=== PATIENT | male | born 1995 | race Caucasian/White ===

== ENCOUNTER 2020-07-24 10:24 | Emergency (ER) | payer OTHER ==
[2020-07-24 10:30] VITALS: RESP 18
--- NOTE | 2020-07-24 11:25 | ED ---
URI HPI - General Chief Complaint: Upper Respiratory Infection Stated Complaint: Sore throat,SOB Time Seen by Provider: 07/24/20 10:33 Source: patient, RN notes reviewed Mode of arrival: ambulatory Limitations: no limitations - History of Present Illness Initial Comments: 25-year-old male presents emergency Department with chief complaint of cough congestion runny nose. Patient states symptoms started on Sunday into . Patient denies any fevers or chills. Patient denies any shortness of breath no chest pain no abdominal pain he has had some slight nausea and have an episode of vomiting. No other complaints. - Related Data Home Medications Medication Instructions Recorded Confirmed No Known Home Medications 07/24/20 07/24/20 Allergies Allergy/AdvReac Type Severity Reaction Status Date / Time methicillin [Methicillin] Allergy Unknown Verified 07/24/20 11:52 Childhood Review of Systems ROS Statement: Those systems with pertinent positive or pertinent negative responses have been documented in the HPI. ROS Other: All systems not noted in ROS Statement are negative. Past Medical History Past Medical History: No Reported History History of Any Multi-Drug Resistant Organisms: None Reported Past Surgical History: No Surgical Hx Reported Past Psychological History: No Psychological Hx Reported Smoking Status: Vaper Past Alcohol Use History: Occasional Past Drug Use History: Marijuana General Exam Limitations: no limitations General appearance: alert, in no apparent distress Head exam: Present: atraumatic, normocephalic, normal inspection Eye exam: Present: normal appearance, PERRL, EOMI. Absent: scleral icterus, conjunctival injection, periorbital swelling ENT exam: Present: normal exam, normal oropharynx, mucous membranes moist Neck exam: Present: normal inspection, full ROM. Absent: tenderness, meningismus, lymphadenopathy Respiratory exam: Present: normal lung sounds bilaterally. Absent: respiratory distress, wheezes, rales, rhonchi, stridor Cardiovascular Exam: Present: normal rhythm, tachycardia, normal heart sounds. Absent: systolic murmur, diastolic murmur, rubs, gallop, clicks GI/Abdominal exam: Present: soft, normal bowel sounds. Absent: distended, tenderness, guarding, rebound, rigid Neurological exam: Present: alert, oriented X3 Skin exam: Present: warm, dry, intact, normal color. Absent: rash Course Vital Signs 07/24/20 10:29 Temperature 98.5 F Pulse Rate 121 H Respiratory 18 Rate Blood Pressure 143/96 O2 Sat by Pulse 99 Oximetry Medical Decision Making - Medical Decision Making 25-year-old male presented for upper respiratory symptoms. Cold is negative. Patient most likely has viral URI be discharged in stable condition return parameters discussed. - Lab Data Lab Results 07/24/20 Range/Units 11:06 Coronavirus (PCR) Not Detected (Not Detectd) Disposition Clinical Impression: Acute upper respiratory infection Disposition: HOME SELF-CARE Condition: Stable Instructions (If sedation given, give patient instructions): Upper Respiratory Infection (ED) Additional Instructions: Please return to the Emergency Department if symptoms worsen or any other concerns. Is patient prescribed a controlled substance at d/c from ED?: No Referrals: None,Stated [Primary Care Provider] - 1-2 days Time of Disposition: 12:07
[2020-07-24 12:37] VITALS: BP 128/79; PULSE 83; TEMP 97.6
== END 2020-07-24 12:37 | disposition home or self-care (01) ==
LOC: EC 10:24
DX: J06.9 Acute upper respiratory infection, unspecified (principal); Z20.828 Contact with and (suspected) exposure to other viral communicable diseases; F17.290 Nicotine dependence, other tobacco product, uncomplicated; Z88.0 Allergy status to penicillin
CPT/HCPCS: 87635; 99283

== ENCOUNTER 2020-07-26 18:09 | Emergency (ER) | payer OTHER ==
--- NOTE | 2020-07-26 20:06 | XR ---
EXAMINATION TYPE: XR chest 2V DATE OF EXAM: 07/26/2020 COMPARISON: NONE HISTORY: Cough TECHNIQUE: FINDINGS: Heart and mediastinum are normal. Lungs are clear. Diaphragm is normal. Bony thorax appears normal. IMPRESSION: Multiple chest
[2020-07-26] MEDS ORDERED: SODIUM CHLORIDE 0.9% 2,000 ML IV STA (21:26)
[2020-07-26] MEDS ORDERED: ONDANSETRON 4 MG/2 ML VIAL IVP STA (21:27)
[2020-07-26] MEDS ORDERED: KETOROLAC 15 MG/ML 1 ML VIAL IVP STA (21:29)
--- NOTE | 2020-07-26 21:31 | ED ---
General Adult HPI - General Chief complaint: Nausea/Vomiting/Diarrhea Stated complaint: Revisit-dizzyiness/not feeling well Time Seen by Provider: 07/26/20 21:13 Source: patient, family Mode of arrival: wheelchair Limitations: no limitations - History of Present Illness Initial comments: 25-year-old male without significant past medical history presents to the emergency room for a chief complaint of nausea vomiting. Patient states for about 4-5 days now he has been nauseous. He states today he started vomiting and is not able to keep much down. Patient also has a cough and sore throat. No fevers. Patient was seen here a few days ago, tested negative for Covid. Patient denies any abdominal pain at this time. States sometimes he has some pa in before he throws up but otherwise is not having abdominal pain. Patient is not having diarrhea.all movements are normal, last one was before he came to the ER. Patient has no other complaints at this time including shortness of breath, chest pain, abdominal pain, headache, or visual changes. - Related Data Previous Rx's Medication Instructions Recorded Ondansetron [Zofran ODT] 4 mg PO Q8HR PRN #15 tab 07/26/20 Allergies Allergy/AdvReac Type Severity Reaction Status Date / Time methicillin [Methicillin] Allergy Unknown Verified 07/24/20 11:52 Childhood Review of Systems ROS Statement: Those systems with pertinent positive or pertinent negative responses have been documented in the HPI. ROS Other: All systems not noted in ROS Statement are negative. Past Medical History Past Medical History: No Reported History History of Any Multi-Drug Resistant Organisms: None Reported Past Surgical History: No Surgical Hx Reported Past Psychological History: No Psychological Hx Reported Smoking Status: Vaper Past Alcohol Use History: Occasional Past Drug Use History: Marijuana General Exam Limitations: no limitations General appearance: alert, in no apparent distress Head exam: Present: atraumatic, normocephalic, normal inspection Eye exam: Present: normal appearance, PERRL, EOMI. Absent: scleral icterus, conjunctival injection, periorbital swelling ENT exam: Present: normal exam, normal oropharynx, mucous membranes moist, TM's normal bilaterally, normal external ear exam Neck exam: Present: normal inspection, full ROM. Absent: tenderness, meningismus, lymphadenopathy Respiratory exam: Present: normal lung sounds bilaterally. Absent: respiratory distress, wheezes, rales, rhonchi, stridor Cardiovascular Exam: Present: regular rate, normal rhythm, normal heart sounds. Absent: systolic murmur, diastolic murmur, rubs, gallop, clicks GI/Abdominal exam: Present: soft, normal bowel sounds. Absent: distended, tenderness, guarding, rebound, rigid Neurological exam: Present: alert Course Vital Signs 07/26/20 21:58 Temperature 97.8 F Pulse Rate 66 Respiratory 18 Rate Blood Pressure 121/68 O2 Sat by Pulse 98 Oximetry Medical Decision Making - Medical Decision Making Vitals are stable. CBC CMP unremarkable. Urinalysis is negative for ketones, no evidence of infection. Coronavirus is negative. Chest x-ray is normal. Patient was given fluids as well as Zofran, did have significant improvement in symptoms. He is eating and drinking without issues. No vomiting. At this time he can be discharged home with Zofran. He will return if he has any worsening symptoms. He will otherwise follow up outpatient with primary care. - Lab Data Result diagrams: 07/26/20 21:26 07/26/20 21:26 Lab Results 07/26/20 07/26/20 07/26/20 Range/Units 19:37 21:21 21:26 WBC 9.9 (3.8-10.6) k/uL RBC 5.55 (4.30-5.90) m/uL Hgb 17.2 (13.0-17.5) gm/dL Hct 48.9 (39.0-53.0) % MCV 88.0 (80.0-100.0) fL MCH 31.0 (25.0-35.0) pg MCHC 35.2 (31.0-37.0) g/dL RDW 12.3 (11.5-15.5) % Plt Count 257 (150-450) k/uL MPV 7.9 Neutrophils % 55 % Lymphocytes % 38 % Monocytes % 5 % Eosinophils % 1 % Basophils % 0 % Neutrophils # 5.4 (1.3-7.7) k/uL Lymphocytes # 3.7 (1.0-4.8) k/uL Monocytes # 0.5 (0-1.0) k/uL Eosinophils # 0.1 (0-0.7) k/uL Basophils # 0.0 (0-0.2) k/uL Sodium (137-145) mmol/L Potassium (3.5-5.1) mmol/L Chloride (98-107) mmol/L Carbon Dioxide (22-30) mmol/L Anion Gap mmol/L BUN (9-20) mg/dL Creatinine (0.66-1.25) mg/dL Est GFR (CKD-EPI)AfAm (>60 ml/min/1.73 sqM) Est GFR (CKD-EPI)NonAf (>60 ml/min/1.73 sqM) Glucose (74-99) mg/dL Calcium (8.4-10.2) mg/dL Total Bilirubin (0.2-1.3) mg/dL AST (17-59) U/L ALT (4-49) U/L Alkaline Phosphatase (38-126) U/L Total Protein (6.3-8.2) g/dL Albumin (3.5-5.0) g/dL Lipase (23-300) U/L Urine Color Yellow Urine Appearance Clear (Clear) Urine pH 6.5 (5.0-8.0) Ur Specific [place] >1.050 H (1.001-1.035) Urine Protein 2+ H (Negative) Urine Glucose (UA) Negative (Negative) Urine Ketones Negative (Negative) Urine Blood Negative (Negative) Urine Nitrite Negative (Negative) Urine Bilirubin 1+ H (Negative) Urine Urobilinogen 8.0 (<2.0) mg/dL Ur Leukocyte Esterase Negative (Negative) Urine RBC 1 (0-5) /hpf Urine WBC 5 (0-5) /hpf Hyaline Casts 5 H (0-2) /lpf Urine Mucus Many H (None) /hpf Coronavirus (PCR) Not Detected (Not Detectd) 07/26/20 Range/Units 21:26 WBC (3.8-10.6) k/uL RBC (4.30-5.90) m/uL Hgb (13.0-17.5) gm/dL Hct (39.0-53.0) % MCV (80.0-100.0) fL MCH (25.0-35.0) pg MCHC (31.0-37.0) g/dL RDW (11.5-15.5) % Plt Count (150-450) k/uL MPV Neutrophils % % Lymphocytes % % Monocytes % % Eosinophils % % Basophils % % Neutrophils # (1.3-7.7) k/uL Lymphocytes # (1.0-4.8) k/uL Monocytes # (0-1.0) k/uL Eosinophils # (0-0.7) k/uL Basophils # (0-0.2) k/uL Sodium 138 (137-145) mmol/L Potassium 4.0 (3.5-5.1) mmol/L Chloride 103 (98-107) mmol/L Carbon Dioxide 27 (22-30) mmol/L Anion Gap 8 mmol/L BUN 11 (9-20) mg/dL Creatinine 0.80 (0.66-1.25) mg/dL Est GFR (CKD-EPI)AfAm >90 (>60 ml/min/1.73 sqM) Est GFR (CKD-EPI)NonAf >90 (>60 ml/min/1.73 sqM) Glucose 98 (74-99) mg/dL Calcium 9.4 (8.4-10.2) mg/dL Total Bilirubin 0.8 (0.2-1.3) mg/dL AST 23 (17-59) U/L ALT 26 (4-49) U/L Alkaline Phosphatase 85 (38-126) U/L Total Protein 7.6 (6.3-8.2) g/dL Albumin 4.4 (3.5-5.0) g/dL Lipase 128 (23-300) U/L Urine Color Urine Appearance (Clear) Urine pH (5.0-8.0) Ur Specific [place] (1.001-1.035) Urine Protein (Negative) Urine Glucose (UA) (Negative) Urine Ketones (Negative) Urine Blood (Negative) Urine Nitrite (Negative) Urine Bilirubin (Negative) Urine Urobilinogen (<2.0) mg/dL Ur Leukocyte Esterase (Negative) Urine RBC (0-5) /hpf Urine WBC (0-5) /hpf Hyaline Casts (0-2) /lpf Urine Mucus (None) /hpf Coronavirus (PCR) (Not Detectd) Disposition Clinical Impression: Nausea and vomiting Disposition: HOME SELF-CARE Condition: Good Instructions (If sedation given, give patient instructions): Acute Nausea and Vomiting (ED) Additional Instructions: Please drink plenty of fluids. Stick to a bland diet such as bananas, rice, applesauce, toast. Take Zofran as needed for nausea. Please follow-up with primary care in 1-2 days. Return to the emergency room for any worsening symptoms. Prescriptions: Ondansetron [Zofran ODT] 4 mg PO Q8HR PRN #15 tab PRN Reason: Nausea Is patient prescribed a controlled substance at d/c from ED?: No Referrals: Kingsley Rodas MD [REFERRING] - 1-2 days Time of Disposition: 22:36
[2020-07-26 21:42] LABS: Basophils % (A) 0 %; Eosinophils # (A) 0.1 k/uL (0-0.7); Eosinophils % (A) 1 %; HCT 48.9 % (39.0-53.0); HGB 17.2 gm/dL (13.0-17.5); Lymphocytes # (A) 3.7 k/uL (1.0-4.8); Lymphocytes % (A) 38 %; MCHC 35.2 g/dL (31.0-37.0); Mean Platelet Volume 7.9; Monocytes # (A) 0.5 k/uL (0-1.0); Monocytes % (A) 5 %; Neutrophils # (A) 5.4 k/uL (1.3-7.7); Neutrophils % (A) 55 %; Platelet Count 257 k/uL (150-450); RBC 5.55 m/uL (4.30-5.90); RDW 12.3 % (11.5-15.5); WBC 9.9 k/uL (3.8-10.6)
[2020-07-26 21:45] LABS: Appearance,Urine Clear (Clear); Bilirubin,Urine 1+ (Negative); Blood,Urine Negative (Negative); Color,Urine Yellow; Glucose,Urine (UA) Negative (Negative); Hyaline Casts,Urine 5 /lpf (0-2); Ketones,Urine Negative (Negative); Leukocyte Esterase,Urine Negative (Negative); Mucus,Urine Many /hpf; Nitrite,Urine Negative (Negative); PH, Urine 6.5 (5.0-8.0); Protein,Urine 2+ (Negative); RBC,Urine 1 /hpf (0-5); WBC,Urine 5 /hpf (0-5)
[2020-07-26 21:48] LABS: Specific Gravity,Urine >1.050 (1.001-1.035)
[2020-07-26 21:50] LABS: ALT 26 U/L (4-49); AST 23 U/L (17-59); African American GFR (CKD) >90 (>60 ml/min/1.73 sqM); Albumin 4.4 g/dL (3.5-5.0); Alkaline Phosphatase 85 U/L (38-126); Anion Gap 8 mmol/L; Blood Urea Nitrogen 11 mg/dL (9-20); Calcium 9.4 mg/dL (8.4-10.2); Carbon Dioxide 27 mmol/L (22-30); Chloride 103 mmol/L (98-107); Glucose 98 mg/dL (74-99); Lipase 128 U/L (23-300); Non-African American GFR(CKD) >90 (>60 ml/min/1.73 sqM); Sodium 138 mmol/L (137-145); Total Bilirubin 0.8 mg/dL (0.2-1.3); Total Protein 7.6 g/dL (6.3-8.2)
[2020-07-26 22:01] VITALS: RESP 18
[2020-07-26 23:02] VITALS: BP 125/79; PULSE 80; TEMP 98
== END 2020-07-26 23:02 | disposition home or self-care (01) ==
LOC: EC 18:09
DX: R11.2 Nausea with vomiting, unspecified (principal); R19.7 Diarrhea, unspecified; R05 Cough; F17.290 Nicotine dependence, other tobacco product, uncomplicated; Z20.822 Contact with and (suspected) exposure to COVID-19
CPT/HCPCS: 36415; 80053; 83690; 85025; 81001; 87635; 71046; 99284; 96374; 96375; 96361; J2405; J1885

== ENCOUNTER 2020-08-15 09:19 | Emergency (ER) | payer OTHER ==
[2020-08-15 09:24] VITALS: RESP 18; TEMP 98.4
[2020-08-15] MEDS ORDERED: ONDANSETRON 4 MG/2 ML VIAL IVP STA (09:34)
[2020-08-15] MEDS ORDERED: SODIUM CHLORIDE 0.9% 1,000 ML IV STA (09:34)
--- NOTE | 2020-08-15 09:55 | ED ---
Nausea/Vomiting/Diarrhea HPI - General Chief complaint: Nausea/Vomiting/Diarrhea Stated complaint: Vomiting, Congestion Time Seen by Provider: 08/15/20 09:25 Source: patient Mode of arrival: ambulatory Limitations: no limitations - History of Present Illness Initial comments: Patient is a 25-year-old male presenting to the emergency Department with comp laints of nausea and vomiting for the past month. Patient states that almost every morning he wakes up with some nausea and dry heaving. He states some days it is only episode other days he does have been one episode. He states he has been under a lot of stress lately, he is planning a wedding in the next few months, he has a 4-month-old baby at home, he works midnights, he has not been eating and drinking very much. He states he does not have a family doctor that he sees. He denies any pertinent past medical history. He denies any recent fevers or chills, no chest pain or shortness of breath, no diarrhea. He denies any abdominal pain. He denies taking any medications, no alcohol or drug use. He has no further complaints at this time. Upon arrival to the ER, his vital signs are stable. - Related Data Previous Rx's Medication Instructions Recorded Ondansetron [Zofran ODT] 4 mg PO Q8HR PRN #15 tab 07/26/20 Ondansetron Odt [Zofran Odt] 4 mg PO Q8HR PRN #10 tab 08/15/20 Allergies Allergy/AdvReac Type Severity Reaction Status Date / Time methicillin [Methicillin] Allergy Unknown Verified 08/15/20 09:21 Childhood Review of Systems ROS Statement: Those systems with pertinent positive or pertinent negative responses have been documented in the HPI. ROS Other: All systems not noted in ROS Statement are negative. Past Medical History Past Medical History: No Reported History History of Any Multi-Drug Resistant Organisms: None Reported Past Surgical History: No Surgical Hx Reported Additional Past Surgical History / Comment(s): ear sugery. Past Psychological History: No Psychological Hx Reported Smoking Status: Vaper Past Alcohol Use History: Occasional Past Drug Use History: Marijuana General Exam - General Exam Comments Initial Comments: GENERAL: Patient is well-developed and well-nourished. Patient is nontoxic and in no acute distress. HEAD: Atraumatic, normocephalic. EYES: Pupils equal round and reactive to light, extraocular movements intact, sclera anicteric, conjunctiva are normal. Eyelids were unremarkable. ENT: TMs normal, nares patent, oropharynx clear without exudates. Moist mucous membranes. NECK: Normal range of motion, supple without lymphadenopathy or JVD. LUNGS: Unlabored respirations. Breath sounds clear to auscultation bilaterally and equal. No wheezes rales or rhonchi. HEART: Regular rate and rhythm without murmurs, rubs or gallops. ABDOMEN: Soft, nontender, normoactive bowel sounds. No guarding, no rebound. No masses appreciated. : Deferred MUSCULOSKELETAL: Normal extremities with adequate strength and normal range of motion, no pitting or edema. No clubbing or cyanosis. NEUROLOGICAL: Patient is alert and oriented x 3. Motor and sensory are also intact. Cranial nerves II through XII grossly intact. Symmetrical smile. Normal speech, normal gait. PSYCH: Normal mood, normal affect. SKIN: Warm, Dry, normal turgor, no rashes or lesions noted. Limitations: no limitations Course Vital Signs 08/15/20 09:21 Temperature 98.4 F Pulse Rate 78 Respiratory 18 Rate Blood Pressure 148/91 O2 Sat by Pulse 94 L Oximetry Medical Decision Making - Medical Decision Making Patient is a 25-year-old male here for intermittent nausea and vomiting for the past month. He is under a lot of stress, eating or drinking very much, working midnights. His vital signs are stable. His exam is unremarkable. Labs are normal, patient received a liter bolus and Zofran. He has been resting comfortably. I discussed with patient and I think his symptoms are related to anxiety, not sleeping and distress. He does not have a regular PCP that he sees. I will give him a referral. Also send him home with a few tablets of Zofran to use as needed. Recommended increasing his water intake, eating a normal diet. He is stable for discharge. Return parameters were discussed with the patient and he verbalized understanding. Case discussed with Dr. Brown. - Lab Data Result diagrams: 08/15/20 09:37 08/15/20 09:37 Lab Results 08/15/20 08/15/20 Range/Units 09:37 09:37 WBC 8.2 (3.8-10.6) k/uL RBC 5.44 (4.30-5.90) m/uL Hgb 16.5 (13.0-17.5) gm/dL Hct 47.3 (39.0-53.0) % MCV 87.0 (80.0-100.0) fL MCH 30.3 (25.0-35.0) pg MCHC 34.8 (31.0-37.0) g/dL RDW 12.3 (11.5-15.5) % Plt Count 320 (150-450) k/uL MPV 7.5 Neutrophils % 79 % Lymphocytes % 15 % Monocytes % 4 % Eosinophils % 1 % Basophils % 0 % Neutrophils # 6.5 (1.3-7.7) k/uL Lymphocytes # 1.3 (1.0-4.8) k/uL Monocytes # 0.3 (0-1.0) k/uL Eosinophils # 0.1 (0-0.7) k/uL Basophils # 0.0 (0-0.2) k/uL Sodium 137 (137-145) mmol/L Potassium 4.3 (3.5-5.1) mmol/L Chloride 102 (98-107) mmol/L Carbon Dioxide 26 (22-30) mmol/L Anion Gap 9 mmol/L BUN 11 (9-20) mg/dL Creatinine 0.89 (0.66-1.25) mg/dL Est GFR (CKD-EPI)AfAm >90 (>60 ml/min/1.73 sqM) Est GFR (CKD-EPI)NonAf >90 (>60 ml/min/1.73 sqM) Glucose 109 H (74-99) mg/dL Calcium 10.1 (8.4-10.2) mg/dL Total Bilirubin 1.3 (0.2-1.3) mg/dL AST 24 (17-59) U/L ALT 26 (4-49) U/L Alkaline Phosphatase 87 (38-126) U/L Total Protein 8.3 H (6.3-8.2) g/dL Albumin 4.8 (3.5-5.0) g/dL Disposition Clinical Impression: Dehydration, Anxiety, Nausea & vomiting Disposition: HOME SELF-CARE Condition: Stable Instructions (If sedation given, give patient instructions): Anxiety (ED) Additional Instructions: Please return to the Emergency Department if symptoms worsen or any other concerns. May take Zofran for any additional nausea or vomiting. Please follow up with a PCP regarding your anxiety, stress. Prescriptions: Ondansetron Odt [Zofran Odt] 4 mg PO Q8HR PRN #10 tab PRN Reason: Nausea Is patient prescribed a controlled substance at d/c from ED?: No Referrals: None,Stated [Primary Care Provider] - 1-2 days Kingsley Rodas MD [REFERRING] - 1-2 days Time of Disposition: 10:50
[2020-08-15 10:02] LABS: Basophils % (A) 0 %; Eosinophils # (A) 0.1 k/uL (0-0.7); Eosinophils % (A) 1 %; HCT 47.3 % (39.0-53.0); HGB 16.5 gm/dL (13.0-17.5); Lymphocytes # (A) 1.3 k/uL (1.0-4.8); Lymphocytes % (A) 15 %; MCH 30.3 pg (25.0-35.0); MCHC 34.8 g/dL (31.0-37.0); Mean Platelet Volume 7.5; Monocytes # (A) 0.3 k/uL (0-1.0); Monocytes % (A) 4 %; Neutrophils # (A) 6.5 k/uL (1.3-7.7); Neutrophils % (A) 79 %; Platelet Count 320 k/uL (150-450); RBC 5.44 m/uL (4.30-5.90); RDW 12.3 % (11.5-15.5); WBC 8.2 k/uL (3.8-10.6)
[2020-08-15 10:09] LABS: ALT 26 U/L (4-49); AST 24 U/L (17-59); African American GFR (CKD) >90 (>60 ml/min/1.73 sqM); Albumin 4.8 g/dL (3.5-5.0); Alkaline Phosphatase 87 U/L (38-126); Anion Gap 9 mmol/L; Blood Urea Nitrogen 11 mg/dL (9-20); Calcium 10.1 mg/dL (8.4-10.2); Carbon Dioxide 26 mmol/L (22-30); Chloride 102 mmol/L (98-107); Glucose 109 mg/dL (74-99); Non-African American GFR(CKD) >90 (>60 ml/min/1.73 sqM); Potassium 4.3 mmol/L (3.5-5.1); Sodium 137 mmol/L (137-145); Total Bilirubin 1.3 mg/dL (0.2-1.3); Total Protein 8.3 g/dL (6.3-8.2)
[2020-08-15 11:25] VITALS: BP 120/70; PULSE 80
== END 2020-08-15 11:19 | disposition home or self-care (01) ==
LOC: EC 09:19
DX: F41.9 Anxiety disorder, unspecified (principal); E86.0 Dehydration; R11.2 Nausea with vomiting, unspecified; F12.90 Cannabis use, unspecified, uncomplicated
CPT/HCPCS: 36415; 80053; 85025; 99284; 96374; J2405

== ENCOUNTER 2020-08-19 08:37 | Emergency (ER) | payer OTHER ==
[2020-08-19 08:48] VITALS: RESP 18
[2020-08-19] MEDS ORDERED: SODIUM CHLORIDE 0.9% 1,000 ML IV STA (09:02)
[2020-08-19] MEDS ORDERED: ONDANSETRON 4 MG/2 ML VIAL IVP STA (09:02)
[2020-08-19 09:29] LABS: Basophils % (A) 0 %; Eosinophils # (A) 0.1 k/uL (0-0.7); Eosinophils % (A) 1 %; HCT 45.4 % (39.0-53.0); HGB 15.9 gm/dL (13.0-17.5); Lymphocytes # (A) 1.5 k/uL (1.0-4.8); Lymphocytes % (A) 17 %; MCH 30.6 pg (25.0-35.0); MCHC 34.9 g/dL (31.0-37.0); MCV 87.6 fL (80.0-100.0); Mean Platelet Volume 7.3; Monocytes # (A) 0.4 k/uL (0-1.0); Monocytes % (A) 4 %; Neutrophils % (A) 77 %; Platelet Count 294 k/uL (150-450); RBC 5.19 m/uL (4.30-5.90); RDW 12.3 % (11.5-15.5); WBC 9.1 k/uL (3.8-10.6)
[2020-08-19 09:43] LABS: ALT 18 U/L (4-49); AST 21 U/L (17-59); African American GFR (CKD) >90 (>60 ml/min/1.73 sqM); Albumin 4.7 g/dL (3.5-5.0); Alkaline Phosphatase 78 U/L (38-126); Anion Gap 8 mmol/L; Blood Urea Nitrogen 8 mg/dL (9-20); Calcium 9.9 mg/dL (8.4-10.2); Carbon Dioxide 27 mmol/L (22-30); Chloride 102 mmol/L (98-107); Glucose 106 mg/dL (74-99); Lipase 151 U/L (23-300); Non-African American GFR(CKD) >90 (>60 ml/min/1.73 sqM); Potassium 4.3 mmol/L (3.5-5.1); Sodium 137 mmol/L (137-145); Total Bilirubin 0.9 mg/dL (0.2-1.3); Total Protein 8.1 g/dL (6.3-8.2)
[2020-08-19 09:46] LABS: Appearance,Urine Clear (Clear); Bilirubin,Urine Negative (Negative); Blood,Urine Negative (Negative); Color,Urine Light Yellow; Glucose,Urine (UA) Negative (Negative); Ketones,Urine Negative (Negative); Leukocyte Esterase,Urine Negative (Negative); Nitrite,Urine Negative (Negative); PH, Urine 6.5 (5.0-8.0); Protein,Urine Negative (Negative); Specific Gravity,Urine 1.012 (1.001-1.035); Urobilinogen,Urine <2.0 mg/dL (<2.0)
--- NOTE | 2020-08-19 09:47 | ED ---
Nausea/Vomiting/Diarrhea HPI - General Chief complaint: Nausea/Vomiting/Diarrhea Stated complaint: Revisit - Vomiting/Dizziness Time Seen by Provider: 08/19/20 08:45 Source: patient Mode of arrival: ambulatory Limitations: no limitations - History of Present Illness Initial comments: Patient is a 25-year-old previously healthy male who presents to the emergency department for nausea and vomiting. Reports that it has been going on for the past 1.5 months. He has been tested twice for Covid both of which were negative. He was seen in our emergency department 4 days ago for similar complaint. At that time the patient states he was under significant amount of stress and therefore he thought it was stress-induced. He has been using Zofran at home however continues to have nausea. Denies any provocative factors. Patient has now developed some generalized abdominal pain. Due to the persistence of the symptoms he does return for repeat evaluation. Denies any fevers. No sick contacts. She denies chest pain or shortness of breath. No constipation, black or bloody stools. Does report diarrhea. No changes in his urination to include dysuria, hematuria or difficulty voiding. When questioned the patient does admit to smoking marijuana however does feel as if this improves his symptoms.denies alcohol use. no other alleviating, precipitating or modifying factors - Related Data Previous Rx's Medication Instructions Recorded Metoclopramide [Reglan] 10 mg PO TID PRN #21 tab 08/19/20 Allergies Allergy/AdvReac Type Severity Reaction Status Date / Time methicillin [Methicillin] Allergy Unknown Verified 08/19/20 10:21 Childhood Review of Systems ROS Statement: Those systems with pertinent positive or pertinent negative responses have been documented in the HPI. ROS Other: All systems not noted in ROS Statement are negative. Past Medical History Past Medical History: No Reported History History of Any Multi-Drug Resistant Organisms: None Reported Past Surgical History: No Surgical Hx Reported Additional Past Surgical History / Comment(s): ear sugery. Past Psychological History: No Psychological Hx Reported Smoking Status: Vaper Past Alcohol Use History: Occasional Past Drug Use History: Marijuana General Exam Limitations: no limitations General appearance: alert, in no apparent distress Head exam: Present: atraumatic, normocephalic, normal inspection Eye exam: Present: normal appearance, PERRL, EOMI. Absent: scleral icterus, conjunctival injection, periorbital swelling ENT exam: Present: normal exam, mucous membranes moist Neck exam: Present: normal inspection. Absent: tenderness, meningismus, lymphadenopathy Respiratory exam: Present: normal lung sounds bilaterally. Absent: respiratory distress, wheezes, rales, rhonchi, stridor Cardiovascular Exam: Present: regular rate, normal rhythm, normal heart sounds. Absent: systolic murmur, diastolic murmur, rubs, gallop, clicks GI/Abdominal exam: Present: soft, normal bowel sounds. Absent: distended, tenderness, guarding, rebound, rigid Extremities exam: Present: normal inspection, full ROM, normal capillary refill. Absent: tenderness, pedal edema, joint swelling, calf tenderness Back exam: Present: normal inspection Neurological exam: Present: alert, oriented X3, CN II-XII intact Psychiatric exam: Present: normal affect, normal mood Skin exam: Present: warm, dry, intact, normal color. Absent: rash Course Vital Signs 08/19/20 08/19/20 08:45 11:13 Temperature 99.2 F 98.3 F Pulse Rate 100 70 Respiratory 18 18 Rate Blood Pressure 148/83 112/78 O2 Sat by Pulse 97 100 Oximetry Medical Decision Making - Medical Decision Making Upon arrival patient is placed into room 8. Thorough history and physical exam was performed. IV is established the patient is given a liter bolus normal saline. Also provided with 4 mg of Zofran. Laboratory studies are conducted and reviewed. Toxicology is positive for marijuana. Patient was sent for computed tomography scan and pelvis as he has had continued nausea, abdominal pain and vomiting without previous imaging. CT is reviewed and demonstrates possible small bowel enteritis. Results discussed the patient. Did discuss fol low-up with GI for possible EGD and colonoscopy. He will be given a prescription for Reglan as he states that the Zofran he has at home is not working well. Return to the emergency room for any worsening symptoms. Patient agreed to this the patient was discharged home in stable condition - Lab Data Result diagrams: 08/19/20 09:12 08/19/20 09:12 Lab Results 08/19/20 08/19/20 08/19/20 Range/Units 09:12 09:12 09:12 WBC 9.1 (3.8-10.6) k/uL RBC 5.19 (4.30-5.90) m/uL Hgb 15.9 (13.0-17.5) gm/dL Hct 45.4 (39.0-53.0) % MCV 87.6 (80.0-100.0) fL MCH 30.6 (25.0-35.0) pg MCHC 34.9 (31.0-37.0) g/dL RDW 12.3 (11.5-15.5) % Plt Count 294 (150-450) k/uL MPV 7.3 Neutrophils % 77 % Lymphocytes % 17 % Monocytes % 4 % Eosinophils % 1 % Basophils % 0 % Neutrophils # 7.0 (1.3-7.7) k/uL Lymphocytes # 1.5 (1.0-4.8) k/uL Monocytes # 0.4 (0-1.0) k/uL Eosinophils # 0.1 (0-0.7) k/uL Basophils # 0.0 (0-0.2) k/uL Sodium 137 (137-145) mmol/L Potassium 4.3 (3.5-5.1) mmol/L Chloride 102 (98-107) mmol/L Carbon Dioxide 27 (22-30) mmol/L Anion Gap 8 mmol/L BUN 8 L (9-20) mg/dL Creatinine 0.81 (0.66-1.25) mg/dL Est GFR (CKD-EPI)AfAm >90 (>60 ml/min/1.73 sqM) Est GFR (CKD-EPI)NonAf >90 (>60 ml/min/1.73 sqM) Glucose 106 H (74-99) mg/dL Plasma Lactic Acid Asim (0.7-2.0) mmol/L Calcium 9.9 (8.4-10.2) mg/dL Total Bilirubin 0.9 (0.2-1.3) mg/dL AST 21 (17-59) U/L ALT 18 (4-49) U/L Alkaline Phosphatase 78 (38-126) U/L Total Protein 8.1 (6.3-8.2) g/dL Albumin 4.7 (3.5-5.0) g/dL Lipase 151 (23-300) U/L Urine Color Light Yellow Urine Appearance Clear (Clear) Urine pH 6.5 (5.0-8.0) Ur Specific [place] 1.012 (1.001-1.035) Urine Protein Negative (Negative) Urine Glucose (UA) Negative (Negative) Urine Ketones Negative (Negative) Urine Blood Negative (Negative) Urine Nitrite Negative (Negative) Urine Bilirubin Negative (Negative) Urine Urobilinogen <2.0 (<2.0) mg/dL Ur Leukocyte Esterase Negative (Negative) Urine Opiates Screen (NotDetected) Ur Oxycodone Screen (NotDetected) Urine Methadone Screen (NotDetected) Ur Propoxyphene Screen (NotDetected) Ur Barbiturates Screen (NotDetected) U Tricyclic Antidepress (NotDetected) Ur Phencyclidine Scrn (NotDetected) Ur Amphetamines Screen (NotDetected) U Methamphetamines Scrn (NotDetected) U Benzodiazepines Scrn (NotDetected) Urine Cocaine Screen (NotDetected) U Marijuana (THC) Screen (NotDetected) 08/19/20 08/19/20 Range/Units 09:12 09:12 WBC (3.8-10.6) k/uL RBC (4.30-5.90) m/uL Hgb (13.0-17.5) gm/dL Hct (39.0-53.0) % MCV (80.0-100.0) fL MCH (25.0-35.0) pg MCHC (31.0-37.0) g/dL RDW (11.5-15.5) % Plt Count (150-450) k/uL MPV Neutrophils % % Lymphocytes % % Monocytes % % Eosinophils % % Basophils % % Neutrophils # (1.3-7.7) k/uL Lymphocytes # (1.0-4.8) k/uL Monocytes # (0-1.0) k/uL Eosinophils # (0-0.7) k/uL Basophils # (0-0.2) k/uL Sodium (137-145) mmol/L Potassium (3.5-5.1) mmol/L Chloride (98-107) mmol/L Carbon Dioxide (22-30) mmol/L Anion Gap mmol/L BUN (9-20) mg/dL Creatinine (0.66-1.25) mg/dL Est GFR (CKD-EPI)AfAm (>60 ml/min/1.73 sqM) Est GFR (CKD-EPI)NonAf (>60 ml/min/1.73 sqM) Glucose (74-99) mg/dL Plasma Lactic Acid Asim 1.2 (0.7-2.0) mmol/L Calcium (8.4-10.2) mg/dL Total Bilirubin (0.2-1.3) mg/dL AST (17-59) U/L ALT (4-49) U/L Alkaline Phosphatase (38-126) U/L Total Protein (6.3-8.2) g/dL Albumin (3.5-5.0) g/dL Lipase (23-300) U/L Urine Color Urine Appearance (Clear) Urine pH (5.0-8.0) Ur Specific [place] (1.001-1.035) Urine Protein (Negative) Urine Glucose (UA) (Negative) Urine Ketones (Negative) Urine Blood (Negative) Urine Nitrite (Negative) Urine Bilirubin (Negative) Urine Urobilinogen (<2.0) mg/dL Ur Leukocyte Esterase (Negative) Urine Opiates Screen Not Detected (NotDetected) Ur Oxycodone Screen Not Detected (NotDetected) Urine Methadone Screen Not Detected (NotDetected) Ur Propoxyphene Screen Not Detected (NotDetected) Ur Barbiturates Screen Not Detected (NotDetected) U Tricyclic Antidepress Not Detected (NotDetected) Ur Phencyclidine Scrn Not Detected (NotDetected) Ur Amphetamines Screen Not Detected (NotDetected) U Methamphetamines Scrn Not Detected (NotDetected) U Benzodiazepines Scrn Not Detected (NotDetected) Urine Cocaine Screen Not Detected (NotDetected) U Marijuana (THC) Screen Detected H (NotDetected) Disposition Clinical Impression: Nausea and vomiting Disposition: HOME SELF-CARE Condition: Stable Instructions (If sedation given, give patient instructions): Acute Nausea and Vomiting (ED) Additional Instructions: Please follow up with the GI doctor for further evaluation. You may need an EGD and colonoscopy. Take the Reglan for nausea. Return to the ED for any new or worsening symptoms. Prescriptions: Metoclopramide [Reglan] 10 mg PO TID PRN #21 tab PRN Reason: GERD Is patient prescribed a controlled substance at d/c from ED?: No Referrals: None,Stated [Primary Care Provider] - 1-2 days Yeyo High MD [STAFF PHYSICIAN] - 1-2 days Time of Disposition: 11:05
--- NOTE | 2020-08-19 10:05 | CT ---
EXAMINATION TYPE: CT abdomen pelvis w con DATE OF EXAM: 08/19/2020 COMPARISON: None HISTORY: Right sided pain with nausea and vomiting for 1+ months CT DLP: 1380.3 mGycm CONTRAST: CT scan of the abdomen and pelvis is performed without Oral Contrast and with IV Contrast, patient in jected with 100 mL of Isovue 300. FINDINGS: LUNG BASES-: No visible nodule. No infiltrate. LIVER/GB: No calcified gallstones. No space occupying hepatic lesion. Biliary tree is of normal ca liber. PANCREAS: No inflammation. No distinct mass. SPLEEN: No splenic enlargement. No lesion seen. ADRENALS: No nodule. No thickening. KIDNEYS/BLADDER: No hydronephrosis. No nephrolithiasis. No distinct renal mass. Urinary bladder g rossly unremarkable. BOWEL: Normal appendix. Mild jejunal wall thickening may reflect a small bowel enteritis. Remaining s mall and large bowel are normal caliber. GENITAL ORGANS: No gross abnormality. LYMPH NODES: No greater than 1cm abdominal or pelvic lymph nodes are appreciated. AORTA: No significant abnormality. OSSEOUS STRUCTURES: No significant abnormality is seen. OTHER: No significant additional abnormality is seen. IMPRESSION: 1. Correlate for small bowel enteritis.
[2020-08-19 11:14] VITALS: BP 112/78; PULSE 70; TEMP 98.3
[2020-08-19 12:23] LABS: Amphetamine Screen,Urine Not Detected (NotDetected); Barbiturate Screen,Urine Not Detected (NotDetected); Benzodiazepines Screen,Urine Not Detected (NotDetected); Cocaine Screen,Urine Not Detected (NotDetected); Methadone Screen, Urine Not Detected (NotDetected); Opiate Screen,Urine Not Detected (NotDetected); Oxycodone Screen, Urine Not Detected (NotDetected); Phencyclidine Screen,Urine Not Detected (NotDetected); Tricyclic Antidepressant,Urine Not Detected (NotDetected); Urn Cannabinoid Scrn Detected (NotDetected)
== END 2020-08-19 11:15 | disposition home or self-care (01) ==
LOC: EC 08:37
DX: R11.2 Nausea with vomiting, unspecified (principal); F12.90 Cannabis use, unspecified, uncomplicated
CPT/HCPCS: 36415; 80053; 83605; 83690; 85025; 81003; 80306; 74177; 99284; 96374; J2405; Q9967

== ENCOUNTER 2020-08-31 07:04 | Emergency (ER) | payer OTHER ==
[2020-08-31 07:08] VITALS: RESP 18; TEMP 97.9
--- NOTE | 2020-08-31 07:28 | ED ---
General Adult HPI - General Chief complaint: Abdominal Pain Stated complaint: Abd Pain Time Seen by Provider: 08/31/20 07:10 Source: patient Mode of arrival: ambulatory Limitations: no limitations - History of Present Illness Initial comments: Dictation was produced using [employer] dictation software. please excuse any grammatical, word or spelling errors. This patient was cared for during a federal and state declared state of emergency secondary to Covid 19 Chief Complaint: 25-year-old male presents to the emergency department for ab dominal pain History of Present Illness: 25-year-old male he denies any significant past medical history. He states that he's been having right lower quadrant abdominal pain for 2 months. He was seen here in emergency department approximately 2 weeks ago for the same complaint. Patient states over the last 2 months he's been having pain in the right lower quadrant radiates down into his groin. states that his urine does look dark. No nausea vomiting. No fevers. Denies any history of abdominal surgeries. The ROS documented in this emergency department record has been reviewed and con firmed by me. Those systems with pertinent positive or negative responses have been documented in the HPI. All other systems are other negative and/or noncontributory. PHYSICAL EXAM: General Impression: Alert and oriented x3, not in acute distress HEENT: Normocephalic atraumatic, extra-ocular movements intact, pupils equal and reactive to light bilaterally, mucous membranes moist. Cardiovascular: Heart regular rate and rhythm Chest: Able to complete full sentences, no retractions, no tachypnea Abdomen: abdomen soft, mild tenderness to the right lower quadrant with palpation, no rebound tenderness, negative Granados sign, non-distended, no organomegaly Musculoskeletal: Pulses present and equal in all extremities, no peripheral edema Motor: no focal deficits noted Neurological: CN II-XII grossly intact, no focal motor or sensory deficits noted Skin: Intact with no visualized rashes Psych: Normal affect and mood ED course: 25-year-old male presents with chronic abdominal pain. States that his symptoms were slightly worsened over the last 2 days. Said this pain for approximately 2 months. 2 weeks ago patient has computed tomography scan of the abdomen and pelvis that showed enteritis. He was given referral to GI for endoscopy however has not made that appointment due to insurance issues. As upon arrival are within acceptable limits. Besides pain in the right lower quadrant patient does not have any other symptoms of acute appendicitis. Given that his pain is chronic over the last 2 months, unlikely to be acute appendicitis. Is well-appearing at bedside with minimal right lower quadrant abdominal pain on physical examination. Laboratory evaluation obtained showing no acute processes. Patient does have a mild leukocytosis 10.9 metabolic panel is unremarkable. Urinalysis is negative. Patient was reevaluated bedside at approximately 8:48 AM found to be stable medical condition. He is lying resting comfortably watching TV. Repeat abdominal examination is unremarkable. Patient's presentation does not suggest surgical abdomen. Return precautions discussed. Patient advised to seek immediate medical attention if he has worsening symptoms including fever, nausea vomiting or rest worsening right lower quadrant abdominal pain. Otherwise he is advised to obtain medical insurance and follow-up with primary care doctor. - Related Data Previous Rx's Medication Instructions Recorded Metoclopramide [Reglan] 10 mg PO TID PRN #21 tab 08/19/20 Allergies Allergy/AdvReac Type Severity Reaction Status Date / Time methicillin [Methicillin] Allergy Unknown Verified 08/31/20 08:08 Childhood Review of Systems ROS Statement: Those systems with pertinent positive or pertinent negative responses have been documented in the HPI. ROS Other: All systems not noted in ROS Statement are negative. Past Medical History Past Medical History: No Reported History History of Any Multi-Drug Resistant Organisms: None Reported Past Surgical History: No Surgical Hx Reported Additional Past Surgical History / Comment(s): ear sugtatianna. Past Psychological History: No Psychological Hx Reported Smoking Status: Vaper Past Alcohol Use History: Occasional Past Drug Use History: Marijuana General Exam Limitations: no limitations Course Vital Signs 08/31/20 07:05 Temperature 97.9 F Pulse Rate 91 Respiratory 18 Rate Blood Pressure 152/90 O2 Sat by Pulse 100 Oximetry Medical Decision Making - Lab Data Result diagrams: 08/31/20 07:29 08/31/20 07:29 Lab Results 08/31/20 08/31/20 08/31/20 Range/Units 07:29 07:29 07:29 WBC 10.9 H (3.8-10.6) k/uL RBC 5.31 (4.30-5.90) m/uL Hgb 15.5 (13.0-17.5) gm/dL Hct 47.3 (39.0-53.0) % MCV 88.9 (80.0-100.0) fL MCH 29.2 (25.0-35.0) pg MCHC 32.9 (31.0-37.0) g/dL RDW 13.1 (11.5-15.5) % Plt Count 279 (150-450) k/uL MPV 7.5 Neutrophils % 62 % Lymphocytes % 29 % Monocytes % 6 % Eosinophils % 2 % Basophils % 0 % Neutrophils # 6.7 (1.3-7.7) k/uL Lymphocytes # 3.1 (1.0-4.8) k/uL Monocytes # 0.6 (0-1.0) k/uL Eosinophils # 0.2 (0-0.7) k/uL Basophils # 0.0 (0-0.2) k/uL Sodium 140 (137-145) mmol/L Potassium 4.0 (3.5-5.1) mmol/L Chloride 103 (98-107) mmol/L Carbon Dioxide 29 (22-30) mmol/L Anion Gap 8 mmol/L BUN 14 (9-20) mg/dL Creatinine 0.95 (0.66-1.25) mg/dL Est GFR (CKD-EPI)AfAm >90 (>60 ml/min/1.73 sqM) Est GFR (CKD-EPI)NonAf >90 (>60 ml/min/1.73 sqM) Glucose 106 H (74-99) mg/dL Calcium 9.4 (8.4-10.2) mg/dL Total Bilirubin 1.4 H (0.2-1.3) mg/dL AST 34 (17-59) U/L ALT 25 (4-49) U/L Alkaline Phosphatase 75 (38-126) U/L Total Protein 7.5 (6.3-8.2) g/dL Albumin 4.2 (3.5-5.0) g/dL Urine Color Yellow Urine Appearance Clear (Clear) Urine pH 6.0 (5.0-8.0) Ur Specific [place] 1.040 H (1.001-1.035) Urine Protein 1+ H (Negative) Urine Glucose (UA) Negative (Negative) Urine Ketones Negative (Negative) Urine Blood Negative (Negative) Urine Nitrite Negative (Negative) Urine Bilirubin Negative (Negative) Urine Urobilinogen 3.0 (<2.0) mg/dL Ur Leukocyte Esterase Negative (Negative) Urine RBC <1 (0-5) /hpf Urine WBC 2 (0-5) /hpf Urine Bacteria Rare H (None) /hpf Urine Mucus Many H (None) /hpf Urine Sperm Rare (None) /hpf Disposition Clinical Impression: Abdominal pain Disposition: HOME SELF-CARE Condition: Good Instructions (If sedation given, give patient instructions): Abdominal Pain (ED) Is patient prescribed a controlled substance at d/c from ED?: No Referrals: None,Stated [Primary Care Provider] - 1-2 days Yeyo High MD [STAFF PHYSICIAN] - 1-2 days Mita Milian MD [STAFF PHYSICIAN] - 1-2 days
[2020-08-31 08:01] LABS: Basophils % (A) 0 %; Eosinophils # (A) 0.2 k/uL (0-0.7); Eosinophils % (A) 2 %; HCT 47.3 % (39.0-53.0); HGB 15.5 gm/dL (13.0-17.5); Lymphocytes # (A) 3.1 k/uL (1.0-4.8); Lymphocytes % (A) 29 %; MCH 29.2 pg (25.0-35.0); MCHC 32.9 g/dL (31.0-37.0); MCV 88.9 fL (80.0-100.0); Mean Platelet Volume 7.5; Monocytes # (A) 0.6 k/uL (0-1.0); Monocytes % (A) 6 %; Neutrophils # (A) 6.7 k/uL (1.3-7.7); Neutrophils % (A) 62 %; Platelet Count 279 k/uL (150-450); RBC 5.31 m/uL (4.30-5.90); RDW 13.1 % (11.5-15.5); WBC 10.9 k/uL (3.8-10.6)
[2020-08-31 08:16] LABS: ALT 25 U/L (4-49); AST 34 U/L (17-59); African American GFR (CKD) >90 (>60 ml/min/1.73 sqM); Albumin 4.2 g/dL (3.5-5.0); Alkaline Phosphatase 75 U/L (38-126); Anion Gap 8 mmol/L; Blood Urea Nitrogen 14 mg/dL (9-20); Calcium 9.4 mg/dL (8.4-10.2); Carbon Dioxide 29 mmol/L (22-30); Chloride 103 mmol/L (98-107); Glucose 106 mg/dL (74-99); Non-African American GFR(CKD) >90 (>60 ml/min/1.73 sqM); Sodium 140 mmol/L (137-145); Total Bilirubin 1.4 mg/dL (0.2-1.3); Total Protein 7.5 g/dL (6.3-8.2)
[2020-08-31 08:44] LABS: Appearance,Urine Clear (Clear); Bacteria,Urine Rare /hpf; Bilirubin,Urine Negative (Negative); Blood,Urine Negative (Negative); Color,Urine Yellow; Glucose,Urine (UA) Negative (Negative); Ketones,Urine Negative (Negative); Leukocyte Esterase,Urine Negative (Negative); Mucus,Urine Many /hpf; Nitrite,Urine Negative (Negative); Protein,Urine 1+ (Negative); RBC,Urine <1 /hpf (0-5); Sperm,Urine Rare /hpf; WBC,Urine 2 /hpf (0-5)
[2020-08-31 09:18] VITALS: BP 121/83; PULSE 64
== END 2020-08-31 09:18 | disposition home or self-care (01) ==
LOC: EC 07:04
DX: R10.31 Right lower quadrant pain (principal); F12.90 Cannabis use, unspecified, uncomplicated
CPT/HCPCS: 36415; 80053; 81001; 85025; 99284

== ENCOUNTER 2020-09-22 02:21 | Emergency (ER) | payer OTHER ==
[2020-09-22 02:26] VITALS: RESP 18; TEMP 98.2
[2020-09-22] MEDS ORDERED: NITROGLYCERIN SL TABS 0.4 MG TAB SUBLINGUAL STA (03:08)
--- NOTE | 2020-09-22 03:12 | ED ---
Chest Pain HPI - General Chief Complaint: Chest Pain Stated Complaint: Chest Pain, Dizziness Time Seen by Provider: 09/22/20 03:02 Source: patient Mode of arrival: ambulatory Limitations: no limitations - History of Present Illness MD Complaint: chest pain Onset/Timin -: hour(s) Onset: during rest Pain Location: left chest Pain Radiation: LUE Severity: mild Quality: dull Consistency: constant Improves With: nothing Worsens With: inspiration Treatments Prior to Arrival: none - Related Data Previous Rx's Medication Instructions Recorded Metoclopramide [Reglan] 10 mg PO TID PRN #21 tab 08/19/20 Ibuprofen [Motrin] 600 mg PO Q8HR PRN #20 tab 09/22/20 Allergies Allergy/AdvReac Type Severity Reaction Status Date / Time methicillin [Methicillin] Allergy Unknown Verified 09/22/20 02:26 Childhood Review of Systems ROS Statement: Those systems with pertinent positive or pertinent negative responses have been documented in the HPI. ROS Other: All systems not noted in ROS Statement are negative. Constitutional: Denies: fever, chills Respiratory: Denies: cough, dyspnea Cardiovascular: Reports: as per HPI, chest pain. Denies: palpitations, edema, syncope Gastrointestinal: Denies: abdominal pain, nausea, vomiting Genitourinary: Denies: dysuria, hematuria Musculoskeletal: Denies: back pain Skin: Denies: rash Neurological: Denies: headache, weakness, numbness EKG Findings - EKG Results: EKG: interpreted by LYNNE, sinus rhythm (Rate 73 bpm), normal axis, normal QRS, normal ST/T, no acute changes Past Medical History Past Medical History: No Reported History History of Any Multi-Drug Resistant Organisms: None Reported Past Surgical History: No Surgical Hx Reported Additional Past Surgical History / Comment(s): ear sugery. Past Psychological History: Anxiety, Depression Smoking Status: Vaper Past Alcohol Use History: Occasional Past Drug Use History: Marijuana General Exam Limitations: no limitations General appearance: alert, in no apparent distress Head exam: Present: atraumatic, normocephalic Eye exam: Present: normal appearance. Absent: scleral icterus, conjunctival injection Neck exam: Present: normal inspection Respiratory exam: Present: normal lung sounds bilaterally, chest wall tenderness. Absent: respiratory distress, wheezes, rales, rhonchi, stridor Cardiovascular Exam: Present: regular rate, normal rhythm, normal heart sounds. Absent: systolic murmur, diastolic murmur, rubs, gallop GI/Abdominal exam: Present: soft. Absent: distended, tenderness, guarding, rebound, rigid, mass Extremities exam: Present: normal inspection, normal capillary refill. Absent: pedal edema, calf tenderness Back exam: Present: normal inspection. Absent: CVA tenderness (R), CVA tenderness (L) Neurological exam: Present: alert Skin exam: Present: warm, dry, intact, normal color. Absent: rash Course Vital Signs 09/22/20 02:23 Temperature 98.2 F Pulse Rate 87 Respiratory 18 Rate Blood Pressure 129/88 O2 Sat by Pulse 96 Oximetry Disposition Clinical Impression: Chest pain Disposition: HOME SELF-CARE Condition: Good Instructions (If sedation given, give patient instructions): Chest Pain (ED) Prescriptions: Ibuprofen [Motrin] 600 mg PO Q8HR PRN #20 tab PRN Reason: Pain Is patient prescribed a controlled substance at d/c from ED?: No Referrals: Samy Skelton MD [Primary Care Provider] - 1-2 days
[2020-09-22 03:34] LABS: Basophils # (A) 0.1 k/uL (0-0.2); Basophils % (A) 1 %; Eosinophils # (A) 0.2 k/uL (0-0.7); Eosinophils % (A) 3 %; HCT 46.7 % (39.0-53.0); HGB 15.2 gm/dL (13.0-17.5); Lymphocytes # (A) 3.2 k/uL (1.0-4.8); Lymphocytes % (A) 38 %; MCH 28.9 pg (25.0-35.0); MCHC 32.5 g/dL (31.0-37.0); MCV 88.9 fL (80.0-100.0); Mean Platelet Volume 7.4; Monocytes # (A) 0.5 k/uL (0-1.0); Monocytes % (A) 6 %; Neutrophils # (A) 4.4 k/uL (1.3-7.7); Neutrophils % (A) 52 %; Platelet Count 274 k/uL (150-450); RBC 5.26 m/uL (4.30-5.90); WBC 8.4 k/uL (3.8-10.6)
[2020-09-22 03:38] LABS: ALT 18 U/L (4-49); AST 22 U/L (17-59); African American GFR (CKD) >90 (>60 ml/min/1.73 sqM); Albumin 4.2 g/dL (3.5-5.0); Alkaline Phosphatase 64 U/L (38-126); Anion Gap 6 mmol/L; Blood Urea Nitrogen 9 mg/dL (9-20); Calcium 9.7 mg/dL (8.4-10.2); Carbon Dioxide 31 mmol/L (22-30); Chloride 102 mmol/L (98-107); Glucose 97 mg/dL (74-99); Magnesium 2.1 mg/dL (1.6-2.3); Non-African American GFR(CKD) >90 (>60 ml/min/1.73 sqM); Potassium 3.9 mmol/L (3.5-5.1); Sodium 139 mmol/L (137-145); Total Bilirubin 1.1 mg/dL (0.2-1.3); Total Protein 7.2 g/dL (6.3-8.2)
[2020-09-22 03:50] LABS: D-Dimer <0.17 mg/L FEU (<0.60); Partial Thromboplastin Time 23.3 sec (22.0-30.0); Prothrombin Time 10.4 sec (9.0-12.0)
--- NOTE | 2020-09-22 04:01 | XR ---
EXAM: XR Chest, 2 Views CLINICAL HISTORY: ITS.REASON XR Reason: chest pain TECHNIQUE: Frontal and lateral views of the chest. COMPARISON: July 26, 2020 FINDINGS: Lungs: Unremarkable. No consolidation. Pleural space: Unremarkable. No pneumothorax. Heart: Unremarkable. No cardiomegaly. Mediastinum: Unremarkable. Bones/joints: Unremarkable. IMPRESSION: Normal chest x-rays.
[2020-09-22 04:22] VITALS: BP 118/64; PULSE 76
== END 2020-09-22 04:22 | disposition home or self-care (01) ==
LOC: EC 02:21
DX: R07.89 Other chest pain (principal); R42 Dizziness and giddiness; F41.9 Anxiety disorder, unspecified; F32.9 Major depressive disorder, single episode, unspecified; F17.290 Nicotine dependence, other tobacco product, uncomplicated; F12.90 Cannabis use, unspecified, uncomplicated
CPT/HCPCS: 36415; 71046; 80053; 83735; 84484; 85025; 85379; 85610; 85730; 93005; 99285

== ENCOUNTER 2020-12-23 16:16 | Emergency (ER) | payer OTHER ==
[2020-12-23 16:28] VITALS: BP 146/93; PULSE 104; RESP 20; TEMP 99.2
--- NOTE | 2020-12-23 16:45 | ED ---
General Adult HPI - General Chief complaint: Shortness of Breath Stated complaint: Coughing,vomiting,SOB Time Seen by Provider: 12/23/20 16:25 Source: patient, EMS Mode of arrival: EMS - History of Present Illness Initial comments: Dictation was produced using [email or web address] dictation software. please excuse any grammatical, word or spelling errors. Chief Complaint: 25-year-old male presents with request for cold test History of Present Illness: 25-year-old male last week he was with an individual. Him and his friend were down in [place] for a music festival. There were no same car, same 10 and within close quarters of each other. They left for a while and once it came back on Sunday. Start him on a Sunday patient isn't having symptoms of cough, shortness of breath vomiting congestion and loose stools and fever. Patient's friend tested positive for cold it earlier today. Patient denies any medical symptoms. He has not had the vaccination. The ROS documented in this emergency department record has been reviewed and confirmed by me. Those systems with pertinent positive or negative responses have been documented in the HPI. All other systems are other negative and/or noncontributory. PHYSICAL EXAM: General Impression: Alert and oriented x3, not in acute distress HEENT: Normocephalic atraumatic, extra-ocular movements intact, pupils equal and reactive to light bilaterally, mucous membranes moist. Cardiovascular: Heart regular rate and rhythm Chest: Able to complete full sentences, no retractions, no tachypnea Abdomen: abdomen soft, non-tender, non-distended, no organomegaly Musculoskeletal: Pulses present and equal in all extremities, no peripheral edema Motor: no focal deficits noted Neurological: CN II-XII grossly intact, no focal motor or sensory deficits noted Skin: Intact with no visualized rashes Psych: Normal affect and mood ED course: 25 well-appearing male presents with cold symptoms and requests for Covid test. He was in close proximity to someone who allegedly tested positive today. Vital signs upon arrival shows heart rate of 104, rest of vital signs within acceptable limits. Patient is well-appearing at bedside. Is not hypoxic and not tachypneic. Rapid Covid Test is negative. Patient observed in emergency department for 45 minutes. He was reevaluated at the bedside at 5:00 PM. Patient showing no signs of distress. Patient had high risk exposure. There is concern that false negative result. PCR was sent. Patient will be discharged. He is given instructions to quarantine until he gets his PCR results. Patient told that if his results are positive that he could receive monoclonal antibodies. Patient told that he should seek immediate medical attention if he has any worsening symptoms especially worsening shortness of breath. - Related Data Previous Rx's Medication Instructions Recorded Metoclopramide [Reglan] 10 mg PO TID PRN #21 tab 08/19/20 Ibuprofen [Motrin] 600 mg PO Q8HR PRN #20 tab 09/22/20 Allergies Allergy/AdvReac Type Severity Reaction Status Date / Time methicillin [Methicillin] Allergy Unknown Verified 09/22/20 02:26 Childhood Review of Systems ROS Statement: Those systems with pertinent positive or pertinent negative responses have been documented in the HPI. ROS Other: All systems not noted in ROS Statement are negative. Past Medical History Past Medical History: No Reported History History of Any Multi-Drug Resistant Organisms: None Reported Past Surgical History: No Surgical Hx Reported Additional Past Surgical History / Comment(s): ear sugery. Past Psychological History: Anxiety, Depression Smoking Status: Vaper Past Alcohol Use History: Occasional Past Drug Use History: Marijuana Course Vital Signs 12/23/20 16:23 Temperature 99.2 F Pulse Rate 104 H Respiratory 20 Rate Blood Pressure 146/93 O2 Sat by Pulse 97 Oximetry Medical Decision Making - Lab Data Lab Results 12/23/20 Range/Units 16:32 Coronavirus (PCR) Not Detected (Not Detectd) Disposition Clinical Impression: URI (upper respiratory infection) Disposition: HOME SELF-CARE Condition: Fair Instructions (If sedation given, give patient instructions): Coronavirus Disease 2019 (COVID-19) Additional Instructions: Please seek medical attention with any worsening respiratory symptoms. Your PCR results are pending. In the meantime please quarantine and avoid exposing anybody. Is patient prescribed a controlled substance at d/c from ED?: No Referrals: Samy Skelton MD [Primary Care Provider] - 1-2 days
== END 2020-12-23 17:14 | disposition home or self-care (01) ==
LOC: EC 16:16
DX: J06.9 Acute upper respiratory infection, unspecified (principal); F17.290 Nicotine dependence, other tobacco product, uncomplicated; Z88.1 Allergy status to other antibiotic agents; Z20.822 Contact with and (suspected) exposure to COVID-19
CPT/HCPCS: 87635; 99284; U0003

== ENCOUNTER 2021-04-06 21:24 | Emergency (ER) | payer OTHER ==
[2021-04-06 21:43] VITALS: BP 138/91; PULSE 90; RESP 20; TEMP 98.5
[2021-04-06] MEDS ORDERED: MAG HYDROX/AL HYDROX/SIMETH 30 ML, HYOSCYAMINE ELIXIR 10 ML, LIDOCAINE VISCOUS 2% 10 ML PO STA ×3 (22:03)
--- NOTE | 2021-04-06 22:09 | ED ---
General Adult HPI - General Chief complaint: Nausea/Vomiting/Diarrhea Stated complaint: Vomiting, Sore throat Time Seen by Provider: 04/06/21 21:48 Source: patient, RN notes reviewed Mode of arrival: ambulatory Limitations: no limitations - History of Present Illness Initial comments: This a 25-year-old male presents emergency Department with chief complaint of cough congestion sore throat. Patient states he is hasn't felt well over the last few days states that his sore throat, hurts to swallow states an episode of vomiting this morning. Complains of some mild epigastric discomfort no nausea complaints now. No diarrhea no constipation no melena hematochezia. Patient's states that his family members are also sick with similar symptoms. He has not been tested for COVID-19. Patient denies any chest pain, palpitations no ear pain - Related Data Previous Rx's Medication Instructions Recorded Metoclopramide [Reglan] 10 mg PO TID PRN #21 tab 08/19/20 Ibuprofen [Motrin] 600 mg PO Q8HR PRN #20 tab 09/22/20 Allergies Allergy/AdvReac Type Severity Reaction Status Date / Time methicillin [Methicillin] Allergy Unknown Verified 04/06/21 21:41 Childhood Review of Systems ROS Statement: Those systems with pertinent positive or pertinent negative responses have been documented in the HPI. ROS Other: All systems not noted in ROS Statement are negative. Past Medical History Past Medical History: No Reported History History of Any Multi-Drug Resistant Organisms: None Reported Past Surgical History: Ear Surgery Additional Past Surgical History / Comment(s): ear sugery. Past Psychological History: Anxiety, Depression Smoking Status: Vaper Past Alcohol Use History: Occasional Past Drug Use History: Marijuana General Exam Limitations: no limitations General appearance: alert, in no apparent distress Head exam: Present: atraumatic, normocephalic, normal inspection Eye exam: Present: normal appearance, PERRL, EOMI. Absent: scleral icterus, conjunctival injection, periorbital swelling ENT exam: Present: mucous membranes moist, TM's normal bilaterally. Absent: normal exam, normal oropharynx (Erythematous with exudates is the posterior pharynx) Neck exam: Present: normal inspection, full ROM. Absent: tenderness, meningismus, lymphadenopathy Respiratory exam: Present: normal lung sounds bilaterally. Absent: respiratory distress, wheezes, rales, rhonchi, stridor Cardiovascular Exam: Present: regular rate, normal rhythm, normal heart sounds. Absent: systolic murmur, diastolic murmur, rubs, gallop, clicks GI/Abdominal exam: Present: soft, normal bowel sounds. Absent: distended, tenderness, guarding, rebound, rigid Course Vital Signs 04/06/21 21:41 Temperature 98.5 F Pulse Rate 90 Respiratory 20 Rate Blood Pressure 138/91 O2 Sat by Pulse 100 Oximetry Medical Decision Making - Medical Decision Making Patient has negative strep, negative COVID-19. X-rays unremarkable will be discharged in stable condition. - Lab Data Lab Results 04/06/21 04/06/21 Range/Units 22:23 22:23 Coronavirus (PCR) Not Detected (Not Detectd) Group A Strep Rapid Negative (Negative) Disposition Clinical Impression: Upper respiratory infection Disposition: HOME SELF-CARE Condition: Stable Instructions (If sedation given, give patient instructions): Upper Respiratory Infection (ED) Additional Instructions: Please return to the Emergency Department if symptoms worsen or any other concerns. Is patient prescribed a controlled substance at d/c from ED?: No Referrals: Samy Skelton MD [Primary Care Provider] - 1-2 days Time of Disposition: 23:42
--- NOTE | 2021-04-06 22:46 | XR ---
EXAMINATION TYPE: XR chest 2V DATE OF EXAM: 04/06/2021 COMPARISON: 09/22/2020 HISTORY: Cough TECHNIQUE: 2 views FINDINGS: Heart and mediastinum are normal. Lungs are clear. Diaphragm is normal. Bony thorax appears normal. IMPRESSION: Normal chest. No change.
== END 2021-04-07 00:08 | disposition home or self-care (01) ==
LOC: EC 21:24
DX: J06.9 Acute upper respiratory infection, unspecified (principal); Z20.822 Contact with and (suspected) exposure to COVID-19; F17.290 Nicotine dependence, other tobacco product, uncomplicated; F12.90 Cannabis use, unspecified, uncomplicated; Z79.899 Other long term (current) drug therapy
CPT/HCPCS: 71046; 87081; 87430; 87635

== ENCOUNTER 2022-03-20 06:33 | Emergency (ER) | payer OTHER ==
[2022-03-20 06:54] VITALS: BP 137/80; PULSE 82; RESP 18; TEMP 98.4
[2022-03-20] MEDS ORDERED: ONDANSETRON 4 MG ODT STARTER PACK 2 TAB BTL PO STA (07:31)
--- NOTE | 2022-03-20 07:32 | ED ---
General Adult HPI - General Chief complaint: Upper Respiratory Infection Stated complaint: vomiting,dizzy Time Seen by Provider: 03/20/22 06:56 Source: patient, RN notes reviewed Mode of arrival: ambulatory Limitations: no limitations - History of Present Illness Initial comments: 26-year-old male presents emergency from chief complaint of cough congestion nausea vomiting. Symptoms started last 24 hours patient states that his symptoms or other has similar symptoms. Patient states that he has not had any vomiting since being at the hospital states there was tolerate vomiting at home. Denies any headache or dizziness currently. Patient states he has bodyaches mild nasal congestion cough. - Related Data Previous Rx's Medication Instructions Recorded Metoclopramide [Reglan] 10 mg PO TID PRN #21 tab 08/19/20 Ibuprofen [Motrin] 600 mg PO Q8HR PRN #20 tab 09/22/20 Omeprazole [PriLOSEC] 40 mg PO DAILY #14 cap 03/20/22 Ondansetron Odt [Zofran Odt] 4 mg PO Q8HR PRN #14 tab 03/20/22 Allergies Allergy/AdvReac Type Severity Reaction Status Date / Time methicillin [Methicillin] Allergy Unknown Verified 03/20/22 06:54 Childhood Review of Systems ROS Statement: Those systems with pertinent positive or pertinent negative responses have been documented in the HPI. ROS Other: All systems not noted in ROS Statement are negative. Past Medical History Past Medical History: No Reported History History of Any Multi-Drug Resistant Organisms: None Reported Past Surgical History: Ear Surgery Additional Past Surgical History / Comment(s): ear sugery. Past Psychological History: Anxiety, Depression Smoking Status: Vaper Past Alcohol Use History: Occasional Past Drug Use History: Marijuana General Exam Limitations: no limitations General appearance: alert, in no apparent distress Head exam: Present: atraumatic, normocephalic, normal inspection Eye exam: Present: normal appearance, PERRL, EOMI. Absent: scleral icterus, conjunctival injection, periorbital swelling ENT exam: Present: normal exam, normal oropharynx, mucous membranes moist Neck exam: Present: normal inspection, full ROM. Absent: tenderness, meningismus, lymphadenopathy Respiratory exam: Present: normal lung sounds bilaterally. Absent: respiratory distress, wheezes, rales, rhonchi, stridor Cardiovascular Exam: Present: regular rate, normal rhythm, normal heart sounds. Absent: systolic murmur, diastolic murmur, rubs, gallop, clicks GI/Abdominal exam: Present: soft, normal bowel sounds. Absent: distended, tenderness, guarding, rebound, rigid Course Vital Signs 03/20/22 06:52 Temperature 98.4 F Pulse Rate 82 Respiratory 18 Rate Blood Pressure 137/80 O2 Sat by Pulse 99 Oximetry Medical Decision Making - Medical Decision Making Patient has a negative influenza, negative COVID-19 testing. Patient's symptoms seemed a viral nature he has had no recurrent vomiting. Patient will be discharged with antiemetics. Return parameters as. Vitals are stable. - Lab Data Lab Results 03/20/22 03/20/22 Range/Units 06:54 06:54 Coronavirus (PCR) Not Detected (Not Detectd) Influenza Type A RNA Not Detected (Not Detectd) Influenza Type B (PCR) Not Detected (Not Detectd) Disposition Clinical Impression: Viral infection, Nausea and vomiting Disposition: HOME SELF-CARE Condition: Stable Instructions (If sedation given, give patient instructions): Acute Nausea and Vomiting (ED) Additional Instructions: Please return to the Emergency Department if symptoms worsen or any other concerns. Prescriptions: Omeprazole [PriLOSEC] 40 mg PO DAILY #14 cap Ondansetron Odt [Zofran Odt] 4 mg PO Q8HR PRN #14 tab PRN Reason: Nausea Is patient prescribed a controlled substance at d/c from ED?: No Referrals: Samy Skelton MD [Primary Care Provider] - 1-2 days Time of Disposition: 07:32
== END 2022-03-20 07:45 | disposition home or self-care (01) ==
LOC: EC 06:33
DX: R11.2 Nausea with vomiting, unspecified (principal); B97.89 Other viral agents as the cause of diseases classified elsewhere; F41.9 Anxiety disorder, unspecified; F32.A Depression, unspecified; F12.90 Cannabis use, unspecified, uncomplicated; F17.290 Nicotine dependence, other tobacco product, uncomplicated; Z20.822 Contact with and (suspected) exposure to COVID-19; Z88.0 Allergy status to penicillin
CPT/HCPCS: 87502; 87635; 99283; S0119

== ENCOUNTER 2022-04-03 06:00 | Emergency (ER) | payer OTHER ==
[2022-04-03 06:13] VITALS: RESP 18; TEMP 98.6
--- NOTE | 2022-04-03 07:40 | ED ---
General Adult HPI - General Chief complaint: Upper Respiratory Infection Stated complaint: Vomiting Source: patient, RN notes reviewed Mode of arrival: ambulatory Limitations: no limitations - History of Present Illness Initial comments: The 26-year-old male coming in today for vomiting x 4 months. He has been evaluated for this before and was not given a reason. He notes intermittent, melenic stools for the last 4 months and believes he should get a CT. He has not tried anything for his symptoms, nothing makes it better. He was not vaccinated against COVID/flu but admits to recent sick contact. He also complains of accompanying symptoms of fever, cough, runny nose, and headache x 1 day. Denies chills, fatigue, sore throat diarrhea, dysuria, or hematuria, flank pain. Denies surgical history, hx of GERD, Crohn's, ulcerative colitis. - Related Data Previous Rx's Medication Instructions Recorded Metoclopramide [Reglan] 10 mg PO TID PRN #21 tab 08/19/20 Ibuprofen [Motrin] 600 mg PO Q8HR PRN #20 tab 09/22/20 Omeprazole [PriLOSEC] 40 mg PO DAILY #14 cap 03/20/22 Ondansetron Odt [Zofran Odt] 4 mg PO Q8HR PRN #14 tab 03/20/22 Allergies Allergy/AdvReac Type Severity Reaction Status Date / Time methicillin [Methicillin] Allergy Unknown Verified 04/03/22 06:13 Childhood Review of Systems ROS Statement: Those systems with pertinent positive or pertinent negative responses have been documented in the HPI. ROS Other: All systems not noted in ROS Statement are negative. Past Medical History Past Medical History: No Reported History History of Any Multi-Drug Resistant Organisms: None Reported Past Surgical History: Ear Surgery Additional Past Surgical History / Comment(s): ear sugery. Past Psychological History: Anxiety, Depression Smoking Status: Vaper Past Alcohol Use History: Occasional Past Drug Use History: Marijuana General Exam Limitations: no limitations General appearance: alert, in no apparent distress Head exam: Present: atraumatic, normocephalic, normal inspection Eye exam: Present: normal appearance, PERRL, EOMI. Absent: scleral icterus, con junctival injection, periorbital swelling ENT exam: Present: normal exam, mucous membranes moist Neck exam: Present: normal inspection. Absent: tenderness, meningismus, lymphadenopathy Respiratory exam: Present: normal lung sounds bilaterally. Absent: respiratory distress, wheezes, rales, rhonchi, stridor Cardiovascular Exam: Present: regular rate, normal rhythm, normal heart sounds. Absent: systolic murmur, diastolic murmur, rubs, gallop, clicks GI/Abdominal exam: Present: soft, tenderness (LUQ ), normal bowel sounds. Absent: distended, guarding, rebound, rigid Psychiatric exam: Present: normal affect, normal mood Skin exam: Present: warm, dry, intact, normal color. Absent: rash Course Vital Signs 04/03/22 06:10 Temperature 98.6 F Pulse Rate 84 Respiratory 18 Rate Blood Pressure 139/83 O2 Sat by Pulse 100 Oximetry Medical Decision Making - Medical Decision Making 26-year-old male coming in for vomiting and abdominal pain. Patient had lab work that was unremarkable. I interpreted the following CT abdomen and pelvis negative for acute abdominal process. Patient encouraged to follow up with primary care. Case discussed with Dr. Contreras. - Lab Data Result diagrams: 04/03/22 07:38 04/03/22 07:38 Lab Results 04/03/22 04/03/22 04/03/22 Range/Units 06:16 07:38 07:38 WBC 10.1 (3.8-10.6) k/uL RBC 5.71 (4.30-5.90) m/uL Hgb 17.1 (13.0-17.5) gm/dL Hct 51.5 (39.0-53.0) % MCV 90.2 (80.0-100.0) fL MCH 29.9 (25.0-35.0) pg MCHC 33.2 (31.0-37.0) g/dL RDW 12.5 (11.5-15.5) % Plt Count 282 (150-450) k/uL MPV 8.2 Neutrophils % 71 % Lymphocytes % 22 % Monocytes % 4 % Eosinophils % 1 % Basophils % 0 % Neutrophils # 7.2 (1.3-7.7) k/uL Lymphocytes # 2.2 (1.0-4.8) k/uL Monocytes # 0.4 (0-1.0) k/uL Eosinophils # 0.1 (0-0.7) k/uL Basophils # 0.0 (0-0.2) k/uL Sodium 141 (137-145) mmol/L Potassium 4.7 (3.5-5.1) mmol/L Chloride 103 (98-107) mmol/L Carbon Dioxide 29 (22-30) mmol/L Anion Gap 9 mmol/L BUN 9 (9-20) mg/dL Creatinine 0.80 (0.66-1.25) mg/dL Est GFR (CKD-EPI)AfAm >90 (>60 ml/min/1.73 sqM) Est GFR (CKD-EPI)NonAf >90 (>60 ml/min/1.73 sqM) Glucose 110 H (74-99) mg/dL Calcium 9.5 (8.4-10.2) mg/dL Total Bilirubin 1.0 (0.2-1.3) mg/dL AST 26 (17-59) U/L ALT 22 (4-49) U/L Alkaline Phosphatase 81 (38-126) U/L Total Protein 8.5 H (6.3-8.2) g/dL Albumin 4.7 (3.5-5.0) g/dL Influenza Type A (PCR) Not Detected (Not Detectd) Influenza Type B (PCR) Not Detected (Not Detectd) RSV (PCR) Not Detected (Not Detectd) SARS-CoV-2 (PCR) Not Detected (Not Detectd) Disposition Clinical Impression: Acute upper respiratory infection, Viral infection, Nausea and vomiting Disposition: HOME SELF-CARE Condition: Stable Additional Instructions: Please return to the ED if her symptoms worsen or persist. Is patient prescribed a controlled substance at d/c from ED?: No Referrals: Samy Skelton MD [Primary Care Provider] - 1-2 days Time of Disposition: 08:27
[2022-04-03 07:50] LABS: Basophils % (A) 0 %; Eosinophils # (A) 0.1 k/uL (0-0.7); Eosinophils % (A) 1 %; HCT 51.5 % (39.0-53.0); HGB 17.1 gm/dL (13.0-17.5); Lymphocytes # (A) 2.2 k/uL (1.0-4.8); Lymphocytes % (A) 22 %; MCH 29.9 pg (25.0-35.0); MCHC 33.2 g/dL (31.0-37.0); MCV 90.2 fL (80.0-100.0); Mean Platelet Volume 8.2; Monocytes # (A) 0.4 k/uL (0-1.0); Monocytes % (A) 4 %; Neutrophils # (A) 7.2 k/uL (1.3-7.7); Neutrophils % (A) 71 %; Platelet Count 282 k/uL (150-450); RBC 5.71 m/uL (4.30-5.90); RDW 12.5 % (11.5-15.5); WBC 10.1 k/uL (3.8-10.6)
[2022-04-03 08:03] LABS: ALT 22 U/L (4-49); AST 26 U/L (17-59); African American GFR (CKD) >90 (>60 ml/min/1.73 sqM); Albumin 4.7 g/dL (3.5-5.0); Alkaline Phosphatase 81 U/L (38-126); Anion Gap 9 mmol/L; Blood Urea Nitrogen 9 mg/dL (9-20); Calcium 9.5 mg/dL (8.4-10.2); Carbon Dioxide 29 mmol/L (22-30); Chloride 103 mmol/L (98-107); Glucose 110 mg/dL (74-99); Non-African American GFR(CKD) >90 (>60 ml/min/1.73 sqM); Potassium 4.7 mmol/L (3.5-5.1); Sodium 141 mmol/L (137-145); Total Protein 8.5 g/dL (6.3-8.2)
--- NOTE | 2022-04-03 08:24 | CT ---
EXAMINATION TYPE: CT abdomen pelvis w con CT DLP: 1253.9 mGycm, Automated exposure control for dose reduction was used. DATE OF EXAM: 04/03/2022 8:14 AM COMPARISON: CT abdomen pelvis most recent from 08/19/2020. CLINICAL INDICATION:Male, 26 years old with history of Abdominal Pain; TECHNIQUE: Axial CT of the abdomen and pelvis. Sagittal and coronal reformats were created on a [employer] workstation. Contrast used:100 ml mL of Isovue 370 with IV Contrast, Oral contrast used: without Oral Contrast FINDINGS: LOWER CHEST: Unremarkable ABDOMEN LIVER: Unremarkable GALLBLADDER AND BILE DUCTS: Unremarkable. PANCREAS: Unremarkable. SPLEEN: Unremarkable. ADRENAL GLANDS: Unremarkable. KIDNEYS AND URETERS: No evidence of hydronephrosis or renal calculus. The ureters are unremarkable. PELVIS BLADDER: Unremarkable REPRODUCTIVE: Unremarkable. ABDOMEN & PELVIS STOMACH AND BOWEL: No evidence of bowel obstruction. Appendix is normal PERITONEUM: No evidence of pneumoperitoneum or free fluid. VASCULATURE: No evidence of aortic aneurysm. MUSCULOSKELETAL: No acute osseous abnormalities LYMPH NODES: No gross evidence for lymphadenopathy. SOFT TISSUE/ABDOMINAL WALL: Unremarkable IMPRESSION: No acute intra-abdominal process.
[2022-04-03 08:38] VITALS: BP 137/83; PULSE 72
== END 2022-04-03 08:37 | disposition home or self-care (01) ==
LOC: EC 06:00
DX: J06.9 Acute upper respiratory infection, unspecified (principal); R11.2 Nausea with vomiting, unspecified; F41.9 Anxiety disorder, unspecified; F32.A Depression, unspecified; F17.290 Nicotine dependence, other tobacco product, uncomplicated; F12.90 Cannabis use, unspecified, uncomplicated; Z20.822 Contact with and (suspected) exposure to COVID-19; Z88.1 Allergy status to other antibiotic agents
CPT/HCPCS: 99284 ×2; 36415; 80053; 85025; 87636; 74177; Q9967